=== PATIENT | female | born 1930 | race Caucasian/White ===

== ENCOUNTER 2017-08-12 09:49 | Emergency (ER) | payer MEDICARE, OTHER ==
[~2017-08-12] VITALS: Ht 161.3 cm; Wt 66.7 kg
--- NOTE | ~2017-08-12 | OR ---
Unit #: [id number] #: [id number] Patient: MEGAN CARVAJAL [id number] [address] [address] [id number] E MR#: [id number] NAME: MEGAN CARVAJAL ROOM: Date of Procedure: 08/12/2017 Admission Date: 08/12/2017 Surgeon: Brenton Lindsey M.D. : 1930 Attending Physician: Marcus Pascal Generic Primary Care Physician: Brock Ross M.D. OPERATIVE REPORT PREOPERATIVE DIAGNOSES 1. History of colonic polyps. 2. Family history of colon cancer. 3. Intermittent rectal bleeding. POSTOPERATIVE DIAGNOSES 1. History of colonic polyps. 2. Family history of colon cancer. 3. Intermittent rectal bleeding. PROCEDURE PERFORMED Colonoscopy to cecum. ANESTHESIA Monitored anesthesia care. FINDINGS The patient was found to have scattered jade-diverticular disease and mild internal hemorrhoids. SPECIMENS None. COMPLICATIONS None apparent. CONDITION The patient tolerated the procedure well. INDICATIONS FOR PROCEDURE The patient is an 86-year-old white female, who has had some intermittent rectal bleeding. Her last colonoscopy was 10 years ago. She has a history of colonic polyps and she has a family history of a first-degree relative with colon cancer. She presents at this time for evaluation by colonoscopy. DESCRIPTION OF PROCEDURE After obtaining informed consent, the patient was brought to the endoscopy suite and after adequate monitored anesthesia care, had the colonoscope placed through the anus, and had the scope slowly advanced with the lumen always in view to the level of the cecum. The cecum was normal as was the Unit #: [id number] #: [id number] Patient: MEGAN CARVAJAL ileocecal valve. The patient had scattered jade-diverticular disease throughout the colon. There were not very numerous in any one area. Other than this, there was no abnormality seen in the ascending colon, hepatic flexure, transverse colon, splenic flexure, descending colon, sigmoid colon, or rectum. On retroflexing in the rectum to the anorectal junction, the patient was found to have some mild internal hemorrhoids. The scope was removed without difficulty. The patient tolerated the procedure well and went from the endoscopy suite to the recovery area in stable condition. RECOMMENDATIONS High-fiber diet, lots of liquids, tucks or wipes p.r.n. Diverticular sheet given. Follow up as needed. Dictated by... Luiz Ospina/felix TD: 08/12/2017 10:51 JOB #: [id number] CC: [facility] Brock Ross M.D. [facility] OPERATIVE REPORT Page 1 of 1 X Brenton Lindsey MD X PROCEDURE OPERATIVE NOTE
[~2017-08-12 09:49] MED LIST: AMLODIPINE BESYL5 MG PO; ASPIRIN PO; ATENOLOL PO; ATORVASTATIN CA10 MG PO; CALCIUM 600 +1 EAC5 PO; CIPRO PO; EVISTA60 M1 PO; EVISTA60 MG PO; KEFLEX500 MG PO; LIPITOR PO; LO-DOSE ASPIRIN81 M1 PO; MACROBID100 M1 DOB; MULTI VITAMIN1 EACH PO; MULTI-VITAMIN1 TAB PO; NORVASC PO; OYSTER CALCIUM500 MG PO; PREDNISONE10 MG PO; SKELAXIN PO; TENORMIN25 M1 PO; ULTRAM PO; VICODIN PO; VIT C; VIT E PO; VITAMIN C500 M1 PO; VOLTAREN75 MG PO; [UNRECOGNIZED DRUG - OTHER] PO
== END 2017-08-12 11:00 | disposition left against medical advice (07) ==
LOC: CED 09:49
DX: Z53.21 Procedure and treatment not carried out due to patient leaving prior to being seen by health care provider (principal)

== ENCOUNTER 2017-08-12 10:59 | Emergency (ER) | payer MEDICARE, OTHER ==
--- NOTE | ~2017-08-12 | CR94 ---
[facility]. [facility] A Service of [facility] & [facility] RADIOLOGY TEXT RESULTS PATIENT: MEGAN CARVAJAL LOCATION: SED : 30 UNIT #: [id number] AGE: [address]: Deric Antonio SEX: F ORDER DR: [id number] [place] [address] [id number] E MR#: [id number] Acc #: [id number] NAME: MEGAN CARVAJAL : 1930 SEX: F STUDY DATE/TIME: 08/12/2017 11:26 UNIT: SED ROOM: STUDY DESCRIPTION: CR Elbow Min 3 Views Rt Attending Physician: Deric Antonio M.D. Ordering Physician: Tutu Gaona M.D. Primary Care Physician: Brock Ross M.D. MEDICAL IMAGING REPORT This report is preliminary unless electronic signature is present. EXAM Right elbow 3 views 08/12/2017 01:26 a.m. COMPARISON None. HISTORY History - history sheet states pain and injury. Fell last night. Elbow laceration. Hematoma and skin tear on the elbow. FINDINGS No effusion or fracture is noted. There is minimal spurring of the olecranon. There is also an ossific spur or density adjacent to the lateral epicondyle. There is a spur at the medial epicondyle. This is likely related to chronic enthesopathy. IMPRESSION 1. No fracture or acute finding. Dictated by... Marry Noel M.D. THIS IS AN ELECTRONICALLY VERIFIED REPORT Marry Noel M.D. at 08/13/2017 11:45 AM TMShantel/lc TD: 08/12/2017 23:22 JOB #: [id number] MEDICAL IMAGING REPORT Page 1 of 1
--- NOTE | ~2017-08-12 | CR173 ---
[facility] A Service [facility] RADIOLOGY TEXT RESULTS PATIENT: MEGAN CARVAJAL LOCATION: SED : 30 UNIT #: [id number] AGE: [address]: Deric Antonio SEX: F ORDER DR: [id number] [place] [id number] E MR#: [id number] Acc #: [id number] NAME: MEGAN CARVAJAL : 1930 SEX: F STUDY DATE/TIME: 08/12/2017 11:26 UNIT: SED ROOM: STUDY DESCRIPTION: CR Knee 3 Views Rt Attending Physician: Deric Antonio M.D. Ordering Physician: Physician Non-Staff Primary Care Physician: Brock Ross M.D. MEDICAL IMAGING REPORT This report is preliminary unless electronic signature is present. EXAM Right knee 3 views, 08/12/2017 11:26 a.m. COMPARISON None. HISTORY Fell last night in the bathroom. Bruise anterior knee. FINDINGS There may be a small suprapatellar bursal effusion without a fat fluid level. There is patellofemoral joint space narrowing and osteophyte formation. No fracture or dislocation is noted. IMPRESSION 1. Probable small effusion. 2. 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 3. No fracture or acute bone finding. 4. Incidental meniscal chondrocalcinosis. Dictated by... Marry Noel M.D. THIS IS AN ELECTRONICALLY VERIFIED REPORT Marry Noel M.D. at 08/13/2017 11:45 AM JUAN/fabby TD: 08/12/2017 23:31 JOB #: [id number] [facility] A Service [facility] RADIOLOGY TEXT RESULTS PATIENT: MEGAN CARVAJAL LOCATION: SED : 30 UNIT #: [id number] AGE: [address]: Deric Antonio SEX: F ORDER DR: MEDICAL IMAGING REPORT Page 1 of 1
== END 2017-08-12 12:30 | disposition home or self-care (01) ==
LOC: SED 10:59
DX: S50.01XA Contusion of right elbow, initial encounter (principal); S80.01XA Contusion of right knee, initial encounter; I10 Essential (primary) hypertension; Z79.82 Long term (current) use of aspirin; Z79.899 Other long term (current) drug therapy; W01.0XXA Fall on same level from slipping, tripping and stumbling without subsequent striking against object, initial encounter; Y92.009 Unspecified place in unspecified non-institutional (private) residence as the place of occurrence of the external cause
CPT/HCPCS: 29530; 73080; 73562; 99283